=== PATIENT | male | born 1975 | race Caucasian/White ===

== ENCOUNTER 2018-06-04 07:04 | Emergency (ER) | payer SELFPAY ==
[2018-06-04 07:43] VITALS: BP 113/62
--- NOTE | 2018-06-04 08:52 | ED ---
Respiratory - HPI Summary HPI Summary: 43 yr old male with the complaint of polyarthralgias. He has had aching in the right knee for a month and now this week also left knee. He complains of aching in shoulders, wrists, elbows. No fever, chills. no joint swelling or redness. He is able to walk ok. He has had left knee surgery 20 plus years ago for torn meniscus. He denies and injuries or falls. - History of Current Complaint Chief Complaint: UCLowerExtremity Stated Complaint: ACHY JOINTS,SORE KNEE Pain Intensity: 3 - Allergy/Home Medications Allergies/Adverse Reactions: Allergies Allergy/AdvReac Type Severity Reaction Status Date / Time Penicillins Allergy Swelling Verified 06/04/18 07:37 Home Medications: Home Medications HYDROcodone/ACETAMIN 5-325 MG* [Harmony 5-325 TAB*] 0.5 tab PO Q4H PRN 06/04/18 [ History Confirmed 06/04/18] PMH/Surg Hx/FS Hx/Imm Hx - Surgical History Surgery Procedure, Year, and Place: Right Inguinal Herniorrhaphy, 2008, [place] ; Left Inguinal Herniorrhaphy, 2006, [place]; [place] K[place] Arthroscopy, [place], [place] Infectious Disease History: No Infectious Disease History: Denies: Traveled Outside the [place] in Last 30 Days - Family History Known Family History: Positive: None - Social History Occupation: Employed Full-time Alcohol Use: Rare Substance Use Type: Reports: None Smoking Status (MU): Never Smoked Tobacco Review of Systems Constitutional: Negative Positive: Arthralgia All Other Systems Reviewed And Are Negative: Yes Physical Exam Triage Information Reviewed: Yes Vital Signs On Initial Exam: Initial Vitals Temp Pulse Resp BP Pulse Ox 98.4 F 66 16 113/62 100 06/04/18 07:35 06/04/18 07:35 06/04/18 07:35 06/04/18 07:35 06/04/18 07:35 Vital Signs Reviewed: Yes Appearance: Positive: Well-Appearing, No Pain Distress Skin: Positive: Warm, Skin Color Reflects Adequate Perfusion Head/Face: Positive: Normal Head/Face Inspection Eyes: Positive: EOMI ENT: Positive: Pharynx normal Neck: Positive: Supple, Nontender, No Lymphadenopathy Respiratory/Lung Sounds: Positive: Clear to Auscultation, Breath Sounds Present Cardiovascular: Positive: RRR. Negative: Leg Edema Left, Leg Edema Right Abdomen Description: Positive: Nontender. Negative: Distended Musculoskeletal: Positive: Strength/ROM Intact, Other - Joints are with out effusion, erythema, tenderness in both his upper and lower extremities. ROM intact. He bears weight well. No deformities to extremities.. Negative: Edema Left, Edema Right Neurological: Positive: Sensory/Motor Intact, Alert, Oriented to Person Place, Time, CN Intact II-III Psychiatric: Positive: Normal - [place] Coma Scale Best Eye Response: 4 - Spontaneous Best Motor Response: 6 - Obeys Commands Best Verbal Response: 5 - Oriented Coma Scale Total: 15 Diagnostics - Vital Signs Vital Signs Temp Pulse Resp BP Pulse Ox 06/04/18 07:35 98.4 F 66 16 113/62 100 - Laboratory Lab Statement: Any lab studies that have been ordered have been reviewed, and results considered in the medical decision making process. Disposition - Course Course Of Treatment: 43 yr old with polyarthralgias. No findins on exminations of his joints. Lyme test sent. He will follow up with his PMD early next week and we await the results of the test. - Diagnoses Provider Diagnoses: Arthralgia Discharge - Sign-Out/Discharge Documenting (check all that apply): Patient Departure All imaging exams completed and their final reports reviewed: No Studies - Discharge Plan Condition: Good Disposition: HOME Patient Education Materials: Musculoskeletal Pain (ED), Knee Pain (ED), Arthralgia (ED) Referrals: Karen Whitfield [Primary Care Provider] - 3 Days Gagan PEDRAZA,Jason Coburn [Medical Doctor] - 4 Days Additional Instructions: Be sure to follow up with your primary next week. - Billing Disposition and Condition Condition: GOOD Disposition: Home
== END 2018-06-04 08:58 | disposition home or self-care (01) ==
LOC: UCCORT 07:04
DX: M25.562 Pain in left knee (principal); M25.561 Pain in right knee; M25.512 Pain in left shoulder; M25.511 Pain in right shoulder; M25.532 Pain in left wrist; M25.531 Pain in right wrist; M25.522 Pain in left elbow; M25.521 Pain in right elbow; Z98.890 Other specified postprocedural states; Z88.0 Allergy status to penicillin
CPT/HCPCS: 36415; 86618; 99211; G0463